=== PATIENT | male | born 1950 | race Caucasian/White ===

== ENCOUNTER 2017-12-10 11:54 | Emergency (ER) | payer MEDICARE ==
[2017-12-10] MEDS ORDERED: Dexamethasone 10 MG/ML VIAL ONE (16:13)
[2017-12-10] MEDS ORDERED: HYDROcodone/Acetaminophen 5/325 mg Tablet ONE (16:14)
--- NOTE | 2017-12-10 16:27 | MRI ---
MRI CERVICAL SPINE WITHOUT CONTRAST: Date: 12/10/17 HISTORY: Left-sided radicular symptoms with associated weakness. Pain x1 month. Difficulty straightening out n noel. Difficulty picking things up for past 5 days. COMPARISON: None. TECHNIQUE: MRI cervical spine is performed without contrast. Multisequential, multiplanar imaging is performed. FINDINGS: Appropriate T1 marrow signal intensity of the cervical vertebra. Vertebral body height is maintained. There is no fracture. No significant STIR hyperintensity to suggest vertebral body edema or ligament ous injury. Visualized brain parenchyma, cervicomedullary junction, cervical cord, and the upper thoracic cord ag ve a normal size and signal intensity. C2-C3: No significant disc osteophyte complex. No significant central canal stenosis. Foramina patent. C3-C4: No significant disc osteophyte complex. No significant central canal stenosis. Mild right foraminal n arrowing. Left foramen patent. C4-C5: Central disc osteophyte complex with a right paracentral component. There is deformity of the ventral thecal sac and ventral cord. Mild central canal stenosis. Mild right and left foraminal narrowing. C5-C6: There is a broad based disc osteophyte complex with a right paracentral component. Ventral CSF signal intensity is effaced. There is deformity of the cervical cord. Moderate to severe central canal sten osis. Degenerative change and bilateral uncovertebral joints results in moderate to severe bilateral foraminal narrowing. C6-C7: Broad based disc osteophyte complex abuts the thecal sac. Moderate central canal stenosis. No signifi cant abnormality of the cord. Degenerative changes of bilateral uncovertebral joints results in moder ate bilateral foraminal narrowing. C7-T1: No significant disc osteophyte complex. No significant central canal stenosis. Foramina are mildly na rrowed bilaterally. IMPRESSION: Degenerative changes of the cervical spine as above. There is moderate to severe central canal stenos is at C5-C6. There is moderate central canal stenosis at C6-C&. Consider neurosurgical consultation. POS: RAHEL
== END 2017-12-10 16:33 | disposition home or self-care (01) ==
LOC: SCSER 11:54
DX: M54.12 Radiculopathy, cervical region (principal); E11.9 Type 2 diabetes mellitus without complications
CPT/HCPCS: 72141; 96372; J1100

== ENCOUNTER 2017-12-13 07:39 | Outpatient (CLI) | payer MEDICARE ==
[2017-12-13 08:55] LABS: Hemoglobin 14.8 g/dL (14.0-18.0); Mean Corpuscular HGB CONC 35.1 g/dL (32.0-36.0); Mean Corpuscular Hemoglobin 33.6 pg (27.0-31.0); Mean Platelet Volume 8.6 fL (7.4-10.4); Platelet Count 197 thou/uL (130-400); RBC Distribution Width 12.6 % (11.5-14.5); Red Blood Cell (RBC) Count 4.41 mill/uL (4.70-6.10); White Blood Cell (WBC) Count 9.2 thou/uL (4.8-10.8)
[2017-12-13 09:40] LABS: Anion Gap 11 mmol/L (10-20); BUN (Urea Nitrogen) 18 mg/dL (8.4-25.7); Calc. Creatinine Clearance 0 mL/min (70-130); Calcium 9.6 mg/dL (7.8-10.44); Carbon Dioxide 30 mmol/L (23-31); Chloride 99 mmol/L (98-107); Estimated GFR-MDRD 74; Glucose 367 mg/dL (80-115); Potassium 4.2 mmol/L (3.5-5.1); Sodium 136 mmol/L (136-145)
== END 2017-12-13 07:40 | disposition home or self-care (01) ==
LOC: LABBT 07:39
PROVIDERS: ATTEND Neurological Surgery
DX: Z01.818 Encounter for other preprocedural examination (principal); M54.12 Radiculopathy, cervical region
CPT/HCPCS: 80048; 85027; 93005; 93010

== ENCOUNTER → 2017-12-16 | Day surgery (SDC) | payer MEDICARE ==
--- NOTE | 2017-12-12 14:20 | HP ---
HISTORY OF PRESENT ILLNESS: The patient is a 66-year-old male who presented to our office for evalua tion of neck and left arm pain. He reports he had approximately 1 month of neck discomfort with radi ation down the left arm, but in the last week developed significant left arm and post doctoral fellow strength weakne ss. He was evaluated in the ER yesterday and found to have significant disk protrusion at C5-C6, but also degenerative changes and left-sided foraminal stenosis at the level below as well. He was seen in the office by Dr. Godoy and they discussed risks, benefits, and alternatives of C5-C7 ACDF. T he patient understood and wished to proceed. PAST MEDICAL HISTORY: Type 2 diabetes, thyroid disease, lumbar spinal stenosis. PAST SURGICAL HISTORY: Thyroidectomy. HOSPITALIZATIONS: See surgical history. FAMILY HISTORY: Noncontributory. SOCIAL HISTORY: The patient does not smoke, drink or use any drugs. He is currently retired. ALLERGIES: The patient has no known drug allergies. REVIEW OF SYSTEMS: PHYSICAL EXAMINATION: GENERAL: The patient is sitting in bed complaining of no current distress. HEENT: Head normocephalic, atraumatic. EYES: PERRLA. Extraocular movements intact. ENT: Oral mucosa is pink, intact, moist. PULMONARY: The patient is breathing comfortably. No evidence of dyspnea. MUSCULOSKELETAL: He has free active range of all lower extremities. He is significantly weak in the left hand post doctoral fellow and pincher grasp. He has no reflex asymmetry. Negative Calderon's, negative clonus. PSYCHIATRIC: Alert and oriented x4. Steady gait. ASSESSMENT AND PLAN: C5-C7 ACDF.
[2017-12-13 08:09] VITALS: BMI 32.3
[~2017-12-16] MED LIST: CEFAZOLIN/Water 2 GM/20 ML SYRINGE ONE; Dexamethasone 20 MG/5 ML VIAL ONE; Fentanyl 100 MCG/2 ML VIAL ONE; Glycopyrrolate 0.2 MG/ML 5 ML SYRINGE ONE; Labetalol HCl 100 MG/20 ML VIAL ONE; Lidocaine 1% PF 5 ML VIAL ONE; Ondansetron HCl/PF 4 MG/2 ML Vial ONE; PHENYLEPHRINE-NS 100 MCG/ML 10 ML SYRINGE ONE; PROPOFOL 200 MG/20 ML VIAL ONE; Sodium Chloride 0.9% 10 ML ONE; ePHEDrine/0.9% NaCl/PF SYRINGE 50 mg/10 ml ONE
--- NOTE | 2017-12-16 11:28 | OP ---
DATE OF PROCEDURE: 12/16/2017 SURGEON: Bird Godoy M.D. CURVE CLEANER: Roverto Ny PA-C PROCEDURE: Anterior cervical discectomy C5-6 and C6-7, interbody arthrodesis, intravertebral biomech anical device, local morselized autograft, demineralized bone matrix, anterior titanium instrumentati on C5-6 and C6-7. PROCEDURE IN DETAIL: The patient was brought into the operating room and intubated. He was position ed supine in modest extension on a gel-filled donut. Incision was made in the right precervical area and dissecting medial to the sternocleidomastoid muscle we identified the anterior cervical spine an d our level was confirmed by x-ray. We debrided anterior osteophytes, placed distraction from C5-C7. Using the operating microscope and microdissection techniques, completely decompressed the intraver tebral discs down to the level of the spinal cord at C5-6 and C6-7. Next, an anterior plate was brou ght into the field and secured to C5, C6, and C7 using two 14 mm screws at each level. The wound was then extensively irrigated, immaculate hemostasis was secured. The wound was closed in anatomic lay ers.
== END ==
LOC: SDC 08:20
PROVIDERS: ATTEND Neurological Surgery
PROC: 0RG20A0 Fusion of 2 or more Cervical Vertebral Joints with Interbody Fusion Device, Anterior Approach, Anterior Column, Open Approach (ICD-10-PCS; principal; 2017-12-16)
PROC: 0RG2070 Fusion of 2 or more Cervical Vertebral Joints with Autologous Tissue Substitute, Anterior Approach, Anterior Column, Open Approach (ICD-10-PCS; 2017-12-16)
PROC: 0RG20J0 Fusion of 2 or more Cervical Vertebral Joints with Synthetic Substitute, Anterior Approach, Anterior Column, Open Approach (ICD-10-PCS; 2017-12-16)
PROC: 0RB30ZZ Excision of Cervical Vertebral Disc, Open Approach (ICD-10-PCS; 2017-12-16)
DX: M48.02 Spinal stenosis, cervical region (principal); M50.122 Cervical disc disorder at C5-C6 level with radiculopathy; E11.9 Type 2 diabetes mellitus without complications; E89.0 Postprocedural hypothyroidism; Z79.82 Long term (current) use of aspirin; Z79.899 Other long term (current) drug therapy
CPT/HCPCS: 20930; 20936; 22551; 22552; 22845; 22853 ×2; 76001; 96374; 96375; C1713 ×2; C1776; A4216; J0131; J1100; J2001; J2405; J2704; J3010; J3490

== ENCOUNTER 2018-01-02 10:56 | Outpatient (CLI) | payer MEDICARE ==
--- NOTE | 2018-01-02 11:39 | RAD ---
FOUR VIEWS OF THE CERVICAL SPINE: Indication: Post op. FINDINGS: There is an ACDF spanning C5 through C7. Hardware projects in the expected position. Spinal alignment is preserved. Lateral masses are symmetric. Lung bases are clear. IMPRESSION: ACDF at C5 through C7. POS: CARYN
== END 2018-01-02 10:57 | disposition home or self-care (01) ==
LOC: SCSRAD 10:56
PROVIDERS: ATTEND Physician Assistant
DX: M54.2 Cervicalgia (principal); Z98.1 Arthrodesis status
CPT/HCPCS: 72040

== ENCOUNTER 2018-02-18 14:39 | Outpatient (CLI) | payer MEDICARE ==
--- NOTE | 2018-02-18 16:18 | RAD ---
CERVICAL SPINE THREE VIEWS: History: 67-year-old male with history of follow up surgery. M48.02 Comparison: 01-02-18 FINDINGS: Anterior cervical fusion changes at C5, C6, and C7 with intradiscal prosthesis. The odontoid and C1 a re obscured on the AP open mouth view. C6-7, C7-T1 are partially obscured on the lateral view. No sig nificant prevertebral soft tissue swelling. Stable appearance from prior study. IMPRESSION: Stable anterior cervical fusion changes at C5, C6, and C7. POS: JOYCE
== END 2018-02-18 14:40 | disposition home or self-care (01) ==
LOC: TBSIIMAG 14:39
PROVIDERS: ATTEND Neurological Surgery
DX: M48.02 Spinal stenosis, cervical region (principal); Z98.1 Arthrodesis status
CPT/HCPCS: 72040

== ENCOUNTER 2018-04-22 13:36 | Outpatient (CLI) | payer MEDICARE ==
--- NOTE | 2018-04-22 15:26 | RAD ---
3 VIEWS CERVICAL SPINE: Date: 04/22/18 INDICATION: History of radiculopathy. COMPARISON: Prior exam dated 02/18/18. FINDINGS: ACDF spanning C5-C7 with intervertebral cages at C5-6 and C6-7 appear unchanged from the comparison. Spinal alignment is within normal limits. Mild multilevel spondylosis is similar appearing. Lateral m asses are symmetric. Lung apices are clear. IMPRESSION: Stable postoperative cervical spine. POS: RAHEL
== END 2018-04-22 13:37 | disposition home or self-care (01) ==
LOC: TBSIIMAG 13:36
PROVIDERS: ATTEND Neurological Surgery
DX: M54.12 Radiculopathy, cervical region (principal); Z98.890 Other specified postprocedural states
CPT/HCPCS: 72040

== ENCOUNTER 2018-05-13 06:50 | Day surgery (SDC) | payer MEDICARE ==
[2018-05-12 09:23] VITALS: BMI 29.4
[2018-05-13 07:57] VITALS: BP 132/83; TEMP 98.1
--- NOTE | 2018-05-13 11:03 | RAD ---
CERVICAL SPINE MYELOGRAM: Date: 05-13-18 Comparison: None. History: Cervical radiculopathy. FINDINGS: Informed consent was obtained prior to the procedure. The bulldozer press operator imaging includes frontal and lateral imaging of the lumbar spine and the cervical spine. Th e cervical spine imaging demonstrates anterior discectomy and fusion hardware at C5-6/C6-7. No eviden ce for hardware failure. No anterolisthesis or retrolisthesis. No prevertebral soft tissue abnormalit y. Bread Dough Mixer imaging of the lumbar spine demonstrates multilevel disc space narrowing and anterior osteophyt e formation within the lumbar spine, most prominent at L2-3. There is multilevel mild lower lumbar sp ine facet hypertrophy. Right lateral osteophyte formation noted at L2-3 and L3-4. The patient was placed on the fluoroscopic table in the oblique prone position and skin overlying the lower lumbar spine was prepped and draped in normal sterile fashion. Skin was anesthetized at the L4 level with buffered Lidocaine and with intermittent fluoroscopic guid ance, a 22 gauge spinal needle was advanced into the thecal sac. Removal of the stylet yields clear c erebral spinal fluid. Subsequently, 10 cc of Isovue 300 was injected, filling the thecal sac and out lining over to the cau da equina. The needle was removed. The patient's head was tilted down to extend the contrast medial i nto the cervical region. Subsequently, the patient was transferred to the CT scanner for CT myelogram of the cervical spine. Exposure data: 1.5 minutes fluoroscopic time, 721.6 mGy*cm^2. IMPRESSION: Successful cervical spine myelogram as detailed above. POS: RAHEL
--- NOTE | 2018-05-13 11:40 | CT ---
CT MYELOGRAM CERVICAL SPINE: 05/13/2018 HISTORY: Cervical radiculopathy. COMPARISON: None. TECHNIQUE: Following the intrathecal administration of Isovue-300, axial CT imaging was obtained at 2.5 mm inter vals, from the skull base through the lung apices. Coronal and sagittal reformatted imaging obtained . FINDINGS: The imaged lung apices are unremarkable. Anterior discectomy and fusion hardware is present at C5-C6/C6-C7. There is mild degenerative change at the atlantoaxial interspace. The craniocervical junction, atlantoaxial interspace, and cervicothoracic junction demonstrate no acu te findings. No prevertebral soft tissue swelling. C2-C3: No central canal or neural foraminal stenosis. C3-C4: No central canal or neural foraminal stenosis. C4-C5: No central canal or neural foraminal stenosis. C5-C6: No significant central canal or neural foraminal stenosis. C6-C7: Bilateral uncovertebral osteophyte formation noted, left greater than right. Posterior osteo phyte formation noted in the right paracentral region. There is associated mild central canal stenos is with effacement of the ventral thecal sac on the right. There is neural foraminal stenosis on the basis of uncovertebral osteophyte formation, moderate on the left and mild on the right. C7-T1: No central canal or neural foraminal stenosis. Evidence for hardware failure at the C5-C6/C6-C7 level. There is atherosclerotic calcification of the distal CCA and proximal ICA bilaterally. IMPRESSION: Degenerative and postoperative changes of the cervical spine, as described above. POS: RAHEL
[2018-05-13] MEDS ORDERED: Iopamidol-M 300 61% 15 ML VIAL ONE (13:08)
== END 2018-05-13 09:55 | disposition home or self-care (01) ==
LOC: RAD 06:50 → EDSTATUS 08:00 → RAD 09:55
PROVIDERS: ATTEND Neurological Surgery
PROC: B01B1ZZ Fluoroscopy of Spinal Cord using Low Osmolar Contrast (ICD-10-PCS; principal; 2018-05-13)
DX: M54.12 Radiculopathy, cervical region (principal); M25.78 Osteophyte, vertebrae; Z98.1 Arthrodesis status; Z79.899 Other long term (current) drug therapy; Z79.82 Long term (current) use of aspirin; Z79.84 Long term (current) use of oral hypoglycemic drugs
CPT/HCPCS: 62302; 72126

== ENCOUNTER 2018-07-01 07:00 | Outpatient (CLI) | payer MEDICARE ==
[2018-07-01 07:34] LABS: ALT (SGPT) 24 U/L (8-55); AST (SGOT) 19 U/L (5-34); Albumin 4.2 g/dL (3.4-4.8); Alkaline Phosphatase 77 U/L (40-150); Anion Gap 14 mmol/L (10-20); BUN (Urea Nitrogen) 13 mg/dL (8.4-25.7); Bilirubin, Total 0.6 mg/dL (0.2-1.2); Calc. Creatinine Clearance 0 mL/min (70-130); Calcium 9.8 mg/dL (7.8-10.44); Carbon Dioxide 28 mmol/L (23-31); Cardiac Risk 4.1 (Less than 4.5); Chloride 105 mmol/L (98-107); Cholesterol 169 mg/dl (< 200 Desired); Estimated GFR-MDRD 90; Globulin 2.6 g/dL (2.4-3.5); Glucose 213 mg/dL (80-115); HDL Cholesterol 41 mg/dL (>60 Neg Risk); LDL Cholesterol, Calculated 99 mg/dL; Potassium 4.6 mmol/L (3.5-5.1); Protein, Total 6.8 g/dL (5.8-8.1); Sodium 142 mmol/L (136-145); Triglycerides 145 mg/dL (Less than 150)
[2018-07-01 08:22] LABS: Free T4 (Free Thyroxine) 1.15 ng/dL (0.70-1.48); Thyroid Stimulating Hormone 0.5959 uIU/mL (0.35-4.94)
[2018-07-01 10:06] LABS: Hemoglobin A1c 7.6 % (4.0-6.0)
[2018-07-01 11:27] LABS: Creatinine, Urine 69.12 mg/dL (63-166); Microalbumin Urine 3.2 mg/dL (0.5-50.0); Microalbumin/Creat Ratio 46.3 mg/g (Less than 30)
== END 2018-07-01 07:01 ==
LOC: SCSLAB 07:00
PROVIDERS: ATTEND Family Medicine
DX: E11.9 Type 2 diabetes mellitus without complications (principal); E03.9 Hypothyroidism, unspecified
CPT/HCPCS: 36415; 80053; 80061; 82043; 83036; 84439; 84443; 84481

== ENCOUNTER 2018-07-28 07:57 | Outpatient (CLI) | payer MEDICARE ==
--- NOTE | 2018-07-28 08:53 | ULT ---
Abdominal aortic ultrasound: HISTORY: Screening for abdominal aortic aneurysm: FINDINGS: No evidence for abdominal aortic aneurysm. There are some atherosclerotic changes of the aorta eviden ce for arteriosclerotic vascular disease. IMPRESSION: No evidence of abdominal aortic aneurysm. Evidence for atherosclerotic vascular disease.
== END 2018-07-28 07:58 | disposition home or self-care (01) ==
LOC: SCSULT 07:57
PROVIDERS: ATTEND Family Medicine
DX: Z13.6 Encounter for screening for cardiovascular disorders (principal); I70.90 Unspecified atherosclerosis
CPT/HCPCS: 76706

== ENCOUNTER 2018-08-13 00:03 | Outpatient (CLI) | payer MEDICARE ==
[2018-08-13 14:08] LABS: #Basophils 0.1 thou/uL (0.0-0.2); #Eosinphils 0.3 thou/uL (0.0-0.7); #Lymphocytes 1.8 thou/uL (1.20-3.40); #Monocytes 0.8 thou/uL (0.11-0.59); #Neutrophils 5.8 thou/uL (1.40-6.50); %Basophils 0.8 % (0.0-1.0); %Eosinophils 2.9 % (0.0-10.0); %Lymphocytes 20.8 % (21.0-51.0); %Monocytes 9.1 % (0.0-10.0); %Neutrophils 66.5 % (42.0-75.0); Hemoglobin 14.7 g/dL (14.0-18.0); Mean Corpuscular HGB CONC 34.2 g/dL (32.0-36.0); Mean Corpuscular Hemoglobin 33.2 pg (27.0-31.0); Mean Corpuscular Volume 97.1 fL (78.0-98.0); Mean Platelet Volume 8.7 fL (7.4-10.4); Platelet Count 226 thou/uL (130-400); RBC Distribution Width 13.3 % (11.5-14.5); Red Blood Cell (RBC) Count 4.43 mill/uL (4.70-6.10); White Blood Cell (WBC) Count 8.7 thou/uL (4.8-10.8)
[2018-08-13 14:23] LABS: Anion Gap 14 mmol/L (10-20); BUN (Urea Nitrogen) 21 mg/dL (8.4-25.7); Calc. Creatinine Clearance 0 mL/min (70-130); Carbon Dioxide 27 mmol/L (23-31); Chloride 103 mmol/L (98-107); Estimated GFR-MDRD 84; Glucose 189 mg/dL (80-115); Potassium 4.3 mmol/L (3.5-5.1); Sodium 140 mmol/L (136-145)
--- NOTE | 2018-08-13 17:10 | EKG ---
Test Reason : Blood Pressure : / mmHG Vent. Rate : 081 BPM Atrial Rate : 081 BPM P-R Int : 202 ms QRS Dur : 088 ms QT Int : 352 ms P-R-T Axes : 052 038 032 degrees QTc Int : 408 ms Normal sinus rhythm Cannot rule out Anterior infarct (cited on or before 13-DEC-2017) Abnormal ECG When compared with ECG of 13-DEC-2017 08:38, No significant change was found Confirmed by Lucrecia MICHELE ([id number]) on 08/13/2018 5:09:55 PM Referred By: SVETA Confirmed By:Lucrecia MICHELE
== END 2018-08-13 00:04 | disposition home or self-care (01) ==
LOC: LABBT 00:03
PROVIDERS: ATTEND Orthopaedic Surgery
DX: Z01.818 Encounter for other preprocedural examination (principal); G56.22 Lesion of ulnar nerve, left upper limb
CPT/HCPCS: 80048; 85025; 93005; 93010

== ENCOUNTER 2018-08-15 07:08 | Day surgery (SDC) | payer MEDICARE ==
[2018-08-13 13:14] VITALS: BMI 30.8
[2018-08-15] MEDS ORDERED: Fentanyl 100 MCG/2 ML VIAL ONE ×2 (10:10→12:16)
[2018-08-15] MEDS ORDERED: Midazolam HCl 2 mg/2 ml Vial ONE (10:10)
[2018-08-15] MEDS ORDERED: Bupivacaine PF 0.5% 30 ML VIAL ONE (10:37)
--- NOTE | 2018-08-15 12:55 | OP ---
DATE OF PROCEDURE: 08/15/2018 PREOPERATIVE DIAGNOSIS: Left-sided cubital tunnel syndrome. POSTOPERATIVE DIAGNOSIS: Left-sided cubital tunnel syndrome. PROCEDURES PERFORMED: 1. Left-sided open ulnar nerve release and transposition. 2. Placement of long arm splint left upper extremity. BOOM MAN: Joao Smith PA-C BLOOD LOSS: Minimal. COMPLICATIONS: None. ANESTHESIA: He did have a general anesthetic. DISPOSITION: He did go to recovery room in stable condition. There were no complications. INDICATIONS: This is a 67-year-old male, comes in complaining of numbness, tingling, and weakness in the arm. An EMG/NCV confirmed cubital tunnel syndrome. At this time, he wished to have surgery to release this. DESCRIPTION OF PROCEDURE: After all appropriate consent forms were explained and signed, he was taken to the operative room and at this time was given general anesthetic. Tourniquet was placed on the left arm as far up as possible and the left upper extremity was prepped and draped in standard surgical fashion. At this time, the limb was exsanguinated and tourniquet was taken up to 250 mmHg. Using loupe magnification, the skin was incised with 10 blade. Bipolar cautery was then used to coagulate any brisk venous bleeding. We then dissected out the ulnar nerve with scissors going proximally midway into the brachium, making sure there was no remaining bands and going down distally to the first motor branch. Once we had made sure that this was fully released circumferentially, we also cleaned off the flexor mass, so that the nerve could set up there. At this time, we then placed a moist Ray-Dewayne sponge with the tourniquet down. Again, the bipolar was used to coagulate any brisk venous bleeding. We then thoroughly irrigated and dried. We then took multiple Vicryl sutures and closed our soft tissue to the cubital tunnel so that the nerve could not rollback inside. We then used 2-0 Vicryl followed by a multiple interrupted nylon sutures to close the skin. Once this was done, and we had infiltrated the skin flaps with local for postop pain relief, we went about making a long-arm splint for the patient. Copious amount of Webril was used to pad up the bony prominences and a long-arm Ortho-Glass splint was then made. Once this was dried, the patient was awakened, taken to recovery room in stable condition. All counts were correct at the end of the case and he received preoperative IV antibiotics. Job ID: [id number]
== END 2018-08-15 13:35 ==
LOC: SDC 07:08
PROVIDERS: ATTEND Orthopaedic Surgery
PROC: 01N40ZZ Release Ulnar Nerve, Open Approach (ICD-10-PCS; principal; 2018-08-15)
DX: G56.22 Lesion of ulnar nerve, left upper limb (principal); Z79.82 Long term (current) use of aspirin; Z79.84 Long term (current) use of oral hypoglycemic drugs; Z79.899 Other long term (current) drug therapy
CPT/HCPCS: J0690; J2250; J3010; S0020

== ENCOUNTER 2022-03-24 13:00 | Emergency (ER) | payer MEDICARE ==
[2022-03-24] MEDS ORDERED: Nitroglycerin 2% Ointment 1 INCH/1 GM Packet ONE (13:15)
[2022-03-24] MEDS ORDERED: Furosemide 40 MG/4 ML VIAL ONE (13:15)
[2022-03-24 13:21] LABS: #Basophils 0.1 thou/uL (0.0-0.2); #Eosinphils 0.5 thou/uL (0.0-0.7); #Neutrophils 9.6 thou/uL (1.40-6.50); %Basophils 0.4 % (0.0-1.0); %Eosinophils 3.3 % (0.0-10.0); %Lymphocytes 21.5 % (21.0-51.0); %Monocytes 6.9 % (0.0-10.0); %Neutrophils 67.9 % (42.0-75.0); Mean Corpuscular HGB CONC 31.4 g/dL (32.0-36.0); Mean Corpuscular Hemoglobin 32.1 pg (27.0-31.0); Mean Platelet Volume 9.2 fL (7.4-10.4); Platelet Count 212 10x3/uL (130-400); RBC Distribution Width 13.2 % (11.5-14.5); Red Blood Cell (RBC) Count 4.66 mill/uL (4.70-6.10); White Blood Cell (WBC) Count 14.1 10x3/uL (4.8-10.8)
[2022-03-24 13:25] LABS: Actual Bicarbonate (HCO3a) 18.1 mEq/L (22-28); Analyzer IN Cardio ER; Base Excess (BEa) -6.6 mEq/L (-2.0 to +3.0); CO2 Tension 34.2 mmHg (35.0-45.0); Calcium, Ionized (arterial) 1.15 mmol/L (1.12-1.30); Carboxyhemoglobin (COHb) 0.2 gm% (0.0-3.0); Hemoglobin (Hb) 15.5 g/dL (14.0-18.0); O2 Tension (PaO2), arterial 85.2 mmHg (> 70.0); Potassium - ABG Lab 3.75 mmol/L (3.70-5.30); Puncture Site RRA; pH, Arterial 7.34 (7.35-7.45)
[2022-03-24 13:42] LABS: ALT (SGPT) 22 U/L (8-55); AST (SGOT) 25 U/L (5-34); Albumin 4.3 g/dL (3.4-4.8); Alkaline Phosphatase 85 U/L (40-110); Anion Gap 18 mmol/L (10-20); BUN (Urea Nitrogen) 17 mg/dL (8.4-25.7); Bilirubin, Total 0.7 mg/dL (0.2-1.2); Calc. Creatinine Clearance 0 mL/min (70-130); Calcium 9.2 mg/dL (7.8-10.44); Carbon Dioxide 17 mmol/L (23-31); Chloride 105 mmol/L (98-107); Estimated GFR 72; Glucose 319 mg/dL (83-110); Lipase 20 U/L (8-78); Potassium 3.9 mmol/L (3.5-5.1); Protein, Total 7.3 g/dL (5.8-8.1); Sodium 136 mmol/L (136-145)
== END 2022-03-24 16:10 | disposition short-term general hospital (02) ==
LOC: ERS 13:00
DX: I50.9 Heart failure, unspecified (principal); J81.0 Acute pulmonary edema; J96.91 Respiratory failure, unspecified with hypoxia; E11.9 Type 2 diabetes mellitus without complications; E03.9 Hypothyroidism, unspecified; E78.00 Pure hypercholesterolemia, unspecified; Z87.891 Personal history of nicotine dependence; Z79.84 Long term (current) use of oral hypoglycemic drugs; Z79.899 Other long term (current) drug therapy; Z79.82 Long term (current) use of aspirin
CPT/HCPCS: 36600; 71045; 80053; 82805; 83690; 83880; 84484; 85025; 93005; 94660; J1940

== ENCOUNTER 2022-06-25 17:30 | Outpatient (CLI) | payer MEDICARE | END 2022-06-25 17:31 | disposition home or self-care (01) | LOC: SLEEPLAB 17:30 | PROVIDERS: ATTEND Family Medicine | DX: G47.33 Obstructive sleep apnea (adult) (pediatric) (principal); F41.9 Anxiety disorder, unspecified; E11.9 Type 2 diabetes mellitus without complications; E66.9 Obesity, unspecified; I50.9 Heart failure, unspecified | CPT/HCPCS: 95800 ==

== ENCOUNTER 2022-12-25 12:30 | Outpatient (CLI) | payer MEDICARE | END 2022-12-25 12:31 | disposition home or self-care (01) | LOC: PET 12:30 | PROVIDERS: ATTEND Internal Medicine Hematology & Oncology | DX: R19.00 Intra-abdominal and pelvic swelling, mass and lump, unspecified site (principal); R22.2 Localized swelling, mass and lump, trunk; C67.3 Malignant neoplasm of anterior wall of bladder | CPT/HCPCS: 78815; A9552 ==